=== PATIENT | male | born 1950 | race Caucasian/White ===

== ENCOUNTER 2018-02-22 11:51 | Emergency (ER) | payer MEDICARE ==
[~2018-02-22] VITALS: Ht 172.7 cm; Wt 71.4 kg
[2018-02-22] MEDS ORDERED: PREDNISONE50 MG PO (12:16)
[2018-02-22] MEDS ORDERED: REPATHA140 MG/ML IM (12:32)
[2018-02-22] MEDS ORDERED: NEURONTIN600 MG PO (12:33)
[2018-02-22] MEDS ORDERED: METOPRL/HCTZ1 TA1 PO (12:34)
[2018-02-22] MEDS ORDERED: VENLAFAXINE HC150 M1 PO (12:34)
[2018-02-22] MEDS ORDERED: HYDROCO/APAP1 T11 PO (12:34)
[2018-02-22] MEDS ORDERED: TRAZODONE100 MG PO (12:34)
[2018-02-22] MEDS ORDERED: LAMICTAL100 M1 PO (12:35)
[2018-02-22 12:41] VITALS: BP 98/68
== END 2018-02-22 12:30 | disposition home or self-care (01) ==
LOC: ED 11:51
DX: L27.0 Generalized skin eruption due to drugs and medicaments taken internally (principal); T50.995A Adverse effect of other drugs, medicaments and biological substances, initial encounter; R50.9 Fever, unspecified; Y92.009 Unspecified place in unspecified non-institutional (private) residence as the place of occurrence of the external cause

== ENCOUNTER 2019-01-22 12:42 | Emergency (ER) | payer MEDICARE ==
[~2019-01-22] VITALS: Ht 172.7 cm; Wt 90.0 kg
[~2019-01-22 12:42] MED LIST: HYDROCO/APAP1 T11 PO; LAMICTAL100 M1 PO; METOPRL/HCTZ1 TA1 PO; NEURONTIN600 MG PO; PREDNISONE50 MG PO; REPATHA140 MG/ML IM; TRAZODONE100 MG PO; VENLAFAXINE HC150 M1 PO
[2019-01-22 13:24] LABS: HEMATOCRIT 39.9 % (39.0-50.0); HEMOGLOBIN 13.8 g/dl (14.0-18.0); IMMATURE GRANULOCYTES 0.3 % (0.0-5.0); MEAN CELL VOLUME 98.5 fL CALC (80.0-100.0); MEAN CORPUSCULAR HGB 34.1 pG CALC (26.0-32.0); MEAN CORPUSCULAR HGB CONC 34.6 g/L CALC (32.0-36.0); NEUT# 5.18 thou/uL (1.82-7.42); RED BLOOD COUNT 4.05 mill/uL (4.70-6.10); RED CELL DISTRI WIDTH 12.5 % (11.5-15.5)
[2019-01-22 13:46] LABS: INTERNATIONAL NORMALIZED RATIO 0.9 RATIO (0.7-1.3); PROTHROMBIN TIME 9.7 SECONDS (9.0-12.5)
[2019-01-22 13:58] LABS: ALBUMIN 4.2 g/dL (3.2-5.0); ALKALINE PHOSPHATASE 72 u/l (38-126); ANION GAP 15 (6-22 (CALC)); BILIRUBIN, TOTAL 0.9 mg/dL (0.0-1.4); BUN 10 mg/dL (8-23); BUN/CREATININE RATIO 12 (12-20 (CALC)); CARBON DIOXIDE 26 mmol/l (22-30); CHLORIDE 99 mmol/l (95-108); CREATININE 0.9 mg/dL (0.7-1.3); GFR > 60 ML/MIN (>=60 (CALC)); GFR FOR AFR.AMER. > 60 ML/MIN (>=60 (CALC)); SGOT/AST 33 u/l (19-48); SODIUM 136 mmol/l (137-146)
[2019-01-22] MEDS ORDERED: TORADOL PO (15:42)
[2019-01-22] MEDS ORDERED: FLEXERIL PO (15:42)
[2019-01-22 15:58] VITALS: BP 146/80
[2019-01-22] MEDS ORDERED: HYDROCHLOROT25 MG PO (16:02)
[2019-01-22] MEDS ORDERED: LOPRESSOR 550 MG/TAB PO (16:02)
== END 2019-01-22 16:20 | disposition home or self-care (01) ==
LOC: ED 12:42
PROVIDERS: Emergency Medicine
DX: I10 Essential (primary) hypertension (principal); M47.812 Spondylosis without myelopathy or radiculopathy, cervical region; R51 Headache; I25.2 Old myocardial infarction; H53.8 Other visual disturbances; E78.5 Hyperlipidemia, unspecified; Z86.73 Personal history of transient ischemic attack (TIA), and cerebral infarction without residual deficits

== ENCOUNTER 2020-01-12 18:34 | Observation (INO) | payer MEDICARE ==
[~2020-01-12] VITALS: Ht 172.7 cm; Wt 70.3 kg
[~2020-01-12 18:34] MED LIST changes: +FLEXERIL PO; +HYDROCHLOROT25 MG PO; +LOPRESSOR 550 MG/TAB PO; +TORADOL PO
[2020-01-12 19:02] LABS: HEMATOCRIT 37.5 % (39.0-50.0); HEMOGLOBIN 13.1 g/dl (14.0-18.0); IMMATURE GRANULOCYTES 0.2 % (0.0-5.0); MEAN CELL VOLUME 95.7 fL CALC (80.0-100.0); MEAN CORPUSCULAR HGB 33.4 pG CALC (26.0-32.0); MEAN CORPUSCULAR HGB CONC 34.9 g/L CALC (32.0-36.0); NEUT# 4.97 thou/uL (1.82-7.42); RED BLOOD COUNT 3.92 mill/uL (4.70-6.10); RED CELL DISTRI WIDTH 12.3 % (11.5-15.5)
[2020-01-12 19:22] LABS: COCAINE NEGATIVE (NEGATIVE); METHADONE NEGATIVE (NEGATIVE); TETRAHYDROCANNABIONOL NEGATIVE (NEGATIVE)
[2020-01-12 19:28] LABS: BARBITURATES NEGATIVE (NEGATIVE); TRICYLIC ANTIDEPRESSANTS NEGATIVE (NEGATIVE)
[2020-01-12 19:29] LABS: OXCYCODONE POSITIVE (NEGATIVE)
[2020-01-12 19:33] LABS: ANION GAP 14 (6-22 (CALC)); BUN 11 mg/dL (8-23); BUN/CREATININE RATIO 13 (12-20 (CALC)); CARBON DIOXIDE 30 mmol/l (22-30); CHLORIDE 92 mmol/l (95-108); CREATININE 0.8 mg/dL (0.7-1.3); ETHYL ALCOHOL 131 mg/dl (0-30); GFR > 60 ML/MIN (>=60 (CALC)); GFR FOR AFR.AMER. > 60 ML/MIN (>=60 (CALC)); SODIUM 133 mmol/l (137-146)
[2020-01-12 19:34] LABS: POTASSIUM 3.1 mmol/l (3.5-5.1)
[2020-01-12] MEDS ORDERED: MONTELUKAST SOD10 MG PO (20:55)
[2020-01-12] MEDS ORDERED: SIMVASTATIN5 MG PO (20:55)
[2020-01-12] MEDS ORDERED: ISOSORBID1 XX (20:57)
[2020-01-12 21:55] VITALS: BP 99/66
[2020-01-12 23:37] VITALS: BP 119/60
[2020-01-13 03:38] VITALS: BP 131/63
[2020-01-13 04:28] LABS: HEMATOCRIT 39.3 % (39.0-50.0); HEMOGLOBIN 13.6 g/dl (14.0-18.0); IMMATURE GRANULOCYTES 0.2 % (0.0-5.0); MEAN CELL VOLUME 94.7 fL CALC (80.0-100.0); MEAN CORPUSCULAR HGB 32.8 pG CALC (26.0-32.0); MEAN CORPUSCULAR HGB CONC 34.6 g/L CALC (32.0-36.0); NEUT# 4.12 thou/uL (1.82-7.42); RED BLOOD COUNT 4.15 mill/uL (4.70-6.10); RED CELL DISTRI WIDTH 12.4 % (11.5-15.5)
[2020-01-13 04:52] LABS: ANION GAP 10 (6-22 (CALC)); BUN 13 mg/dL (8-23); BUN/CREATININE RATIO 16 (12-20 (CALC)); CARBON DIOXIDE 33 mmol/l (22-30); CHLORIDE 95 mmol/l (95-108); CREATININE 0.8 mg/dL (0.7-1.3); GFR > 60 ML/MIN (>=60 (CALC)); GFR FOR AFR.AMER. > 60 ML/MIN (>=60 (CALC)); POTASSIUM 3.4 mmol/l (3.5-5.1); SODIUM 135 mmol/l (137-146)
[2020-01-13 08:00] VITALS: BP 141/71
[2020-01-13 11:50] VITALS: BP 119/60
[2020-01-13 16:00] VITALS: BP 135/71
[2020-01-13] MEDS ORDERED: MONTELUKAST SOD10 MG PO (16:42)
[2020-01-13] MEDS ORDERED: ISOSORBIDE MONO30 MG PO (16:42)
[2020-01-13] MEDS ORDERED: CRESTOR40 MG PO (16:43)
[2020-01-13 18:34] VITALS: BP 107/67
[2020-01-13 23:15] VITALS: BP 102/55
[2020-01-14 04:51] VITALS: BP 97/55
[2020-01-14 05:32] LABS: HEMATOCRIT 40.6 % (39.0-50.0); HEMOGLOBIN 13.8 g/dl (14.0-18.0); MEAN CELL VOLUME 97.4 fL CALC (80.0-100.0); MEAN CORPUSCULAR HGB 33.1 pG CALC (26.0-32.0); RED BLOOD COUNT 4.17 mill/uL (4.70-6.10); RED CELL DISTRI WIDTH 12.6 % (11.5-15.5)
[2020-01-14 05:43] LABS: INTERNATIONAL NORMALIZED RATIO 0.9 RATIO (0.7-1.3); PROTHROMBIN TIME 9.7 SECONDS (9.0-12.5)
[2020-01-14 05:49] LABS: ANION GAP 13 (6-22 (CALC)); BUN 23 mg/dL (8-23); BUN/CREATININE RATIO 19 (12-20 (CALC)); CALCULATED LDLCHOLESTEROL 77 mg/dL (62-129 (CALC)); CARBON DIOXIDE 27 mmol/l (22-30); CHLORIDE 101 mmol/l (95-108); CHOLESTEROL HDL RATIO 2.6 (<4.4 (CALC)); CREATININE 1.2 mg/dL (0.7-1.3); GFR 60 ML/MIN (>=60 (CALC)); GFR FOR AFR.AMER. > 60 ML/MIN (>=60 (CALC)); HDL CHOLESTEROL 74 mg/dL (>=40); MAGNESIUM 2.2 mg/dL (1.6-2.3); POTASSIUM 3.9 mmol/l (3.5-5.1); SODIUM 137 mmol/l (137-146); TOTAL CHOLESTEROL 189 mg/dl (0-199); TOTAL TRIGLYCERIDES 191 mg/dl (30-149); VLDL CHOLESTROL 38 mg/dl (4-45 (CALC))
[2020-01-14 08:00] VITALS: BP 123/71
[2020-01-14 11:18] VITALS: BP 109/54
[2020-01-14] MEDS ORDERED: ADLT ASA LOW81 MG PO (11:23)
[2020-01-14] MEDS ORDERED: PLAVIX75 MG PO ×2 (11:23→16:39)
[2020-01-14 15:19] VITALS: BP 102/62
[2020-01-14] MEDS ORDERED: CHILD'S ASA81 MG PO (16:39)
[2020-01-14 18:32] VITALS: BP 139/66
== END 2020-01-14 19:30 | disposition home or self-care (01) ==
LOC: ED 18:34 → ED-I 20:34 → ED 20:45 → MS2 20:46
PROVIDERS: Family Medicine; Nurse Practitioner Family; ADMIT Internal Medicine; ATTEND Internal Medicine
DX: I65.21 Occlusion and stenosis of right carotid artery (principal); I10 Essential (primary) hypertension; I25.10 Atherosclerotic heart disease of native coronary artery without angina pectoris; E87.6 Hypokalemia; F32.9 Major depressive disorder, single episode, unspecified; E78.5 Hyperlipidemia, unspecified; G47.30 Sleep apnea, unspecified; M79.10 Myalgia, unspecified site; F40.240 Claustrophobia; I25.2 Old myocardial infarction; Z86.73 Personal history of transient ischemic attack (TIA), and cerebral infarction without residual deficits; Z95.5 Presence of coronary angioplasty implant and graft; Z87.891 Personal history of nicotine dependence
CPT/HCPCS: A9579; G0378; J2060

== ENCOUNTER 2020-04-03 14:33 | Observation (INO) | payer MEDICARE ==
[~2020-04-03] VITALS: Ht 172.7 cm; Wt 72.0 kg
[~2020-04-03 14:33] MED LIST changes: +ADLT ASA LOW81 MG PO; +CHILD'S ASA81 MG PO; +CRESTOR40 MG PO; +ISOSORBID1 XX; +ISOSORBIDE MONO30 MG PO; +MONTELUKAST SOD10 MG PO; +PLAVIX75 MG PO; +SIMVASTATIN5 MG PO
--- NOTE | 2020-04-03 14:33 | NUR ---
PATIENT TO ROOM VIA EMS AND PHYSICIAN NOTIFED OF PATIENT STATUS
[2020-04-03 14:59] LABS: HEMOGLOBIN 13.3 g/dl (14.0-18.0); IMMATURE GRANULOCYTES 0.2 % (0.0-5.0); MEAN CELL VOLUME 95.2 fL CALC (80.0-100.0); MEAN CORPUSCULAR HGB 33.3 pG CALC (26.0-32.0); NEUT# 4.79 thou/uL (1.82-7.42); RED BLOOD COUNT 3.99 mill/uL (4.70-6.10); RED CELL DISTRI WIDTH 11.9 % (11.5-15.5)
[2020-04-03 15:22] LABS: ALBUMIN 4.1 g/dL (3.2-5.0); ALKALINE PHOSPHATASE 60 u/l (38-126); AMYLASE 143 u/l (30-110); ANION GAP 11 (6-22 (CALC)); BILIRUBIN, TOTAL 0.4 mg/dL (0.0-1.4); BUN 20 mg/dL (8-23); BUN/CREATININE RATIO 21 (12-20 (CALC)); CARBON DIOXIDE 29 mmol/l (22-30); CHLORIDE 98 mmol/l (95-108); GFR > 60 ML/MIN (>=60 (CALC)); GFR FOR AFR.AMER. > 60 ML/MIN (>=60 (CALC)); LIPASE 194 u/l (23-300); MAGNESIUM 1.9 mg/dL (1.6-2.3); POTASSIUM 3.6 mmol/l (3.5-5.1); SGOT/AST 50 u/l (19-48); SODIUM 134 mmol/l (137-146); TOTAL PROTEIN 6.9 g/dL (6.3-8.2)
--- NOTE | 2020-04-03 15:30 | NUR ---
PT UPDATED ON KNOWN RESULTS. PT STATES THE NTG PASTE IS HELPING THE CHEST DISCOMFORT.
[2020-04-03 15:32] LABS: ACT PARTIAL THROMBO TIME 23.1 SECONDS (20.0-32.5); INTERNATIONAL NORMALIZED RATIO 0.9 RATIO (0.7-1.3); PROTHROMBIN TIME 9.9 SECONDS (9.0-12.5)
[2020-04-03] MEDS ORDERED: HYDROCHLOROT12.5 MG PO (16:03)
[2020-04-03] MEDS ORDERED: ZETIA10 MG PO (16:06)
--- NOTE | 2020-04-03 16:09 | NUR ---
PT AWARE OF PENDING ADMISSION, NO CHEST PAIN REPORTED.
--- NOTE | 2020-04-03 18:00 | NUR ---
PT TAKEN TO ROOM 268, REPORT WAS TO SANDRINE JACK. PT REMAINS FREE OF CHEST PAIN. MEAL AWAITS PT ON FLOOR.
[2020-04-03 18:01] VITALS: BP 117/69
--- NOTE | 2020-04-03 18:05 | NUR ---
REPORT RECEIVED FROM HAYLIE IN ED, PT ARRIVED ON UNOT VIA W/C @ 1754 AND TRANSFERRED TO BED. ALERT AND ORIENTED X 4, DENIES PAIN AT THIS TIME, TELE MONITOR IN PLACE, IV ACCESS IN PLACE TO RAC. ORIENTED TO ROOM AND CALL WOODARD, MEAL SERVED, CALL WOODARD IN REACH, WILL CONTINUE TO MONITOR.
[2020-04-03 19:05] VITALS: BP 138/71
--- NOTE | 2020-04-03 19:30 | NUR ---
PATIENT RESTING IN BED POSITIONED ON LEFT SIDE. EASY TO AROUSE. PATIENT IS ALERT AND ORIENTEDX3. PATIENT WITH NO COMPLAINTS OR CONCERNS AT THIS TIME. DENIES CHEST PAIN OR SOB AT THIS TIME. TELE MONITOR IN PLACE. SALINE LOCK TO RIGHT AC-APPEARS HEALTHY AT THIS TIME. SAFETY PRECAUTIONS REINFORCED. CALL LIGHT IN REACH. WILL CONT TO MONITOR.
--- NOTE | 2020-04-03 21:30 | NUR ---
PATIENT MOVED FROM 268 TO 261-ROOM WAS TOO NOISEY. PATIENT STEADY ON HIS FEET. MEDICATED FOR SLEEP WITH TRAZADONE AND SONATA. REFUSED EFFEXOR AT THIS TIME-STATES THAT HE TAKE IT IN THE MORNING AND ALREADY TOO IT TODAY. SAFETY PRECAUTIONS REINFORCED. CALL LIGHT IN REACH. WILL CONT TO MONITOR.
[2020-04-04] VITALS: BP 105/54
[2020-04-04 02:00] VITALS: BP 96/57
--- NOTE | 2020-04-04 02:40 | NUR ---
RECEIVED CALL FROM ER THAT PATIENT HR-40'S. PATIENT IS SLEEPING, SNORING AND EASY TO AROUSE. DENIES ANY DISCOMFORT, PALPATATIONS OR SOB. SKIN IS WARM AND DRY. CALL LIGHT IN REACH. WILL CONT TO MONITOR.
[2020-04-04 04:09] VITALS: BP 92/56
--- NOTE | 2020-04-04 04:57 | NUR ---
PATIENT APPEARS SLEEPING AT THIS TIME WITH EYES CLOSED POSITION ON SIDE. RESPS ARE EVEN AND UNLABORED. TELE MONITOR IN PLACE. CALL LIGHT IN REACH. WILL CONT TO MONITOR.
[2020-04-04 06:28] LABS: CHOLESTEROL HDL RATIO 2.3 (<4.4 (CALC))
[2020-04-04 08:00] VITALS: BP 122/71
--- NOTE | 2020-04-04 08:00 | NUR ---
ASSESSMENT IS COMPLETED: IV SITE IS FREE FROM REDNESS OR EDEMA. HR IS REG, PULSES ARE STRONG X4, ABD IS SOFT WITH ACTIVE BS,. BREATH SOUNDS ARE CLEAR,BILATERALLY. NO C/O CP. TELE MONITOR IN PLACE.
[2020-04-04 11:00] VITALS: BP 91/53
--- NOTE | 2020-04-04 12:00 | NUR ---
PT IV SITE DISCONTINUED CATHETER INTACT FOR DISCHARGE ALL INSTRUCTIONS GIVEN WILL CALLF OR RIDE AFTER 12 DUE TO RIDE IS RESTING. CONITNUE TO OBSERVE AND MONITOR.
--- NOTE | 2020-04-04 13:05 | NUR ---
Discharge instructions given. Patient verbalizes understanding of same. Discharged in stable condition via Wheelchair to Home with family. All belongings sent with pt.
== END 2020-04-04 13:08 | disposition home or self-care (01) ==
LOC: ED 14:33 → ED-I 15:08 → ED 16:04 → ED-I 16:05 → MS2 16:23
PROVIDERS: ADMIT Internal Medicine; ATTEND Internal Medicine
DX: R07.9 Chest pain, unspecified (principal); I10 Essential (primary) hypertension; I25.10 Atherosclerotic heart disease of native coronary artery without angina pectoris; I65.29 Occlusion and stenosis of unspecified carotid artery; E78.5 Hyperlipidemia, unspecified; I25.2 Old myocardial infarction; Z95.5 Presence of coronary angioplasty implant and graft; Z86.73 Personal history of transient ischemic attack (TIA), and cerebral infarction without residual deficits; Z87.891 Personal history of nicotine dependence; Z79.02 Long term (current) use of antithrombotics/antiplatelets; Z79.82 Long term (current) use of aspirin
CPT/HCPCS: G0378

== ENCOUNTER 2021-03-09 14:09 | Emergency (ER) | payer MEDICARE ==
[~2021-03-09 14:09] MED LIST changes: +HYDROCHLOROT12.5 MG PO; +ZETIA10 MG PO
[2021-03-09 14:52] LABS: HEMATOCRIT 43.3 % (39.0-50.0); HEMOGLOBIN 14.6 g/dl (14.0-18.0); IMMATURE GRANULOCYTES 0.5 % (0.0-5.0); MEAN CELL VOLUME 98.9 fL CALC (80.0-100.0); MEAN CORPUSCULAR HGB 33.3 pG CALC (26.0-32.0); MEAN CORPUSCULAR HGB CONC 33.7 g/dL CAL (32.0-36.0); NEUT# 15.6 thou/uL (1.82-7.42); RED BLOOD COUNT 4.38 mill/uL (4.70-6.10); RED CELL DISTRI WIDTH 12.3 % (11.5-15.5)
[2021-03-09 14:58] LABS: ALBUMIN 4.7 g/dL (3.2-5.0); ALKALINE PHOSPHATASE 69 u/l (38-126); ANION GAP 14 (6-22 (CALC)); BUN 14 mg/dL (8-23); BUN/CREATININE RATIO 13 (12-20 (CALC)); CARBON DIOXIDE 28 mmol/l (22-30); CHLORIDE 96 mmol/l (95-108); CREATININE 1.1 mg/dL (0.7-1.3); GFR > 60 ML/MIN (>=60 (CALC)); GFR FOR AFR.AMER. > 60 ML/MIN (>=60 (CALC)); POTASSIUM 3.6 mmol/l (3.5-5.1); SGOT/AST 50 u/l (19-48); SODIUM 134 mmol/l (137-146)
[2021-03-09 15:00] LABS: BILIRUBIN, TOTAL 0.9 mg/dL (0.0-1.4); TOTAL PROTEIN 8.3 g/dL (6.3-8.2)
[2021-03-09 16:40] LABS: URINE BILIRUBIN - DIPSTICK NEGATIVE (NEGATIVE); URINE BLOOD DIPSTICK SMALL (NEGATIVE); URINE COLOR YELLOW; URINE GLUCOSE - DIPSTICK NEGATIVE (NEGATIVE); URINE KETONE NEGATIVE (NEGATIVE); URINE LEUK ESTERASE NEGATIVE (NEGATIVE); URINE PROTEIN - DIPSTICK NEGATIVE (NEG-TRACE); URINE UROBILINOGEN - DIPSTICK 0.2 E.U./dL (0.2)
[2021-03-09 16:42] LABS: URINE NITRITE - DIPSTICK NEGATIVE (Negative)
[2021-03-09 16:45] LABS: URINE RBC 0-2 RBC/hpf (0-5); URINE WBC 0-2 WBC/hpf (0-5)
[2021-03-09] MEDS ORDERED: BACLOFEN5 MG PO (17:06)
[2021-03-09] MEDS ORDERED: PLAVIX75 MG PO (17:06)
[2021-03-09 17:08] VITALS: BP 119/77
== END 2021-03-09 17:29 | disposition home or self-care (01) ==
LOC: ED 14:09
PROVIDERS: Emergency Medicine
DX: R42 Dizziness and giddiness (principal); I10 Essential (primary) hypertension; E78.5 Hyperlipidemia, unspecified; I25.2 Old myocardial infarction; Z86.73 Personal history of transient ischemic attack (TIA), and cerebral infarction without residual deficits; Z79.02 Long term (current) use of antithrombotics/antiplatelets
CPT/HCPCS: Q9967

== ENCOUNTER 2021-10-31 16:58 | Emergency (ER) | payer MEDICARE ==
[~2021-10-31] VITALS: Ht 172.7 cm; Wt 75.0 kg
[~2021-10-31 16:58] MED LIST changes: +BACLOFEN5 MG PO
[2021-10-31 18:35] VITALS: BP 129/73
== END 2021-10-31 18:35 | disposition home or self-care (01) ==
LOC: ED 16:58
PROC: 0HQKXZZ Repair Right Lower Leg Skin, External Approach (ICD-10-PCS; principal; 2021-10-31)
DX: S81.811A Laceration without foreign body, right lower leg, initial encounter (principal); I10 Essential (primary) hypertension; I25.2 Old myocardial infarction; E78.5 Hyperlipidemia, unspecified; X58.XXXA Exposure to other specified factors, initial encounter; Z86.73 Personal history of transient ischemic attack (TIA), and cerebral infarction without residual deficits; Z79.01 Long term (current) use of anticoagulants

== ENCOUNTER 2021-11-11 10:02 | Emergency (ER) | payer MEDICARE ==
[~2021-11-11] VITALS: Ht 172.7 cm; Wt 75.0 kg
[2021-11-11 11:09] VITALS: BP 145/74
== END 2021-11-11 11:11 | disposition home or self-care (01) ==
LOC: ED 10:02
DX: S91.011D Laceration without foreign body, right ankle, subsequent encounter (principal); X58.XXXD Exposure to other specified factors, subsequent encounter; I10 Essential (primary) hypertension; E78.5 Hyperlipidemia, unspecified; I25.2 Old myocardial infarction; Z86.73 Personal history of transient ischemic attack (TIA), and cerebral infarction without residual deficits

== ENCOUNTER 2022-05-02 14:37 | Observation (INO) | payer MEDICARE ==
[2022-05-02] VITALS (24 sets, daily range): BP systolic 107–138; BP diastolic 57–91
[~2022-05-02] VITALS: Ht 172.7 cm; Wt 70.0 kg
[2022-05-02 15:15] LABS: HEMATOCRIT 41.9 % (39.0-50.0); HEMOGLOBIN 14.3 g/dl (14.0-18.0); IMMATURE GRANULOCYTES 0.1 % (0.0-5.0); MEAN CELL VOLUME 101.2 fL CALC (80.0-100.0); MEAN CORPUSCULAR HGB 34.5 pG CALC (26.0-32.0); MEAN CORPUSCULAR HGB CONC 34.1 g/dL CAL (32.0-36.0); NEUT# 5.85 thou/uL (1.82-7.42); RED BLOOD COUNT 4.14 mill/uL (4.70-6.10)
[2022-05-02] MEDS ORDERED: LAMOTRIGINE100 MG PO (15:26)
[2022-05-02 15:29] LABS: ALBUMIN 4.3 g/dL (3.2-5.0); ALKALINE PHOSPHATASE 72 u/l (38-126); ANION GAP 16 (6-22 (CALC)); BUN 15 mg/dL (8-23); BUN/CREATININE RATIO 14 (12-20 (CALC)); CARBON DIOXIDE 24 mmol/l (22-30); CHLORIDE 98 mmol/l (95-108); GFR FOR AFR.AMER. > 60 ML/MIN (>=60 (CALC)); GFR OTHER RACES > 60 ML/MIN (>=60 (CALC)); POTASSIUM 3.5 mmol/l (3.5-5.1); SGOT/AST 40 u/l (19-48); SODIUM 134 mmol/l (137-146); TOTAL PROTEIN 7.7 g/dL (6.3-8.2)
[2022-05-02] MEDS ORDERED: BAYER CHEWABLE81 MG PO (15:29)
[2022-05-02] MEDS ORDERED: OMEPRAZOLE10 MG PO (15:29)
[2022-05-02 15:30] LABS: BILIRUBIN, TOTAL 0.5 mg/dL (0.0-1.4)
[2022-05-02] MEDS ORDERED: TRAZODONE50 MG PO (15:30)
[2022-05-02] MEDS ORDERED: ISOSORB MONO30 MG PO (16:33)
[2022-05-02] MEDS ORDERED: HYDROCODONE BIT1 TA9 PO (16:33)
[2022-05-02] MEDS ORDERED: BACLOFEN10 MG PO (16:33)
[2022-05-03 00:18] VITALS: BP 91/49
[2022-05-03 05:09] VITALS: BP 110/71
[2022-05-03 05:24] LABS: HEMATOCRIT 40.3 % (39.0-50.0); HEMOGLOBIN 13.5 g/dl (14.0-18.0); MEAN CELL VOLUME 102.8 fL CALC (80.0-100.0); MEAN CORPUSCULAR HGB 34.4 pG CALC (26.0-32.0); MEAN CORPUSCULAR HGB CONC 33.5 g/dL CAL (32.0-36.0); RED BLOOD COUNT 3.92 mill/uL (4.70-6.10); RED CELL DISTRI WIDTH 12.2 % (11.5-15.5)
[2022-05-03 05:51] LABS: BUN 19 mg/dL (8-23); BUN/CREATININE RATIO 16 (12-20 (CALC)); CALCULATED LDLCHOLESTEROL 87 mg/dL (62-129 (CALC)); CHLORIDE 96 mmol/l (95-108); CHOLESTEROL HDL RATIO 3.8 (<4.4 (CALC)); CREATININE 1.2 mg/dL (0.7-1.3); GFR FOR AFR.AMER. > 60 ML/MIN (>=60 (CALC)); GFR OTHER RACES 60 ML/MIN (>=60 (CALC)); HDL CHOLESTEROL 46 mg/dL (>=40); MAGNESIUM 1.8 mg/dL (1.6-2.3); POTASSIUM 3.8 mmol/l (3.5-5.1); SODIUM 136 mmol/l (137-146); TOTAL CHOLESTEROL 174 mg/dl (0-199); TOTAL TRIGLYCERIDES 207 mg/dl (30-149); VLDL CHOLESTROL 41 mg/dl (4-45 (CALC))
[2022-05-03 06:02] LABS: ANION GAP 13 (6-22 (CALC)); CARBON DIOXIDE 31 mmol/l (22-30)
[2022-05-03 07:45] VITALS: BP 109/64
[2022-05-03 10:35] VITALS: BP 102/64
[2022-05-03] MEDS ORDERED: ASPERCREME LIDOCA4 % SD (12:23)
[2022-05-03] MEDS ORDERED: TESSALON PERLE100 MG PO (15:05)
== END 2022-05-03 15:07 | disposition home or self-care (01) ==
LOC: ED 14:37 → ED-I 15:30 → ED 19:00 → MS2 19:01
PROVIDERS: Family Medicine; ADMIT Hospitalist; ATTEND Hospitalist
DX: R07.89 Other chest pain (principal); I10 Essential (primary) hypertension; I25.10 Atherosclerotic heart disease of native coronary artery without angina pectoris; E78.5 Hyperlipidemia, unspecified; F32.A Depression, unspecified; Z95.5 Presence of coronary angioplasty implant and graft; Z86.73 Personal history of transient ischemic attack (TIA), and cerebral infarction without residual deficits; Z87.891 Personal history of nicotine dependence; Z20.822 Contact with and (suspected) exposure to COVID-19

== ENCOUNTER 2024-11-22 10:13 | Observation (INO) | payer MEDICARE ==
[~2024-11-22] VITALS: Ht 172.7 cm; Wt 74.2 kg
[2024-11-22] VITALS (16 sets, daily range): BP systolic 94–125; BP diastolic 47–72
[~2024-11-22 10:13] MED LIST changes: +ABILIFY5 MG PO; +ARIPIPRAZOLE20 MG PO; +ASPERCREME LIDOCA4 % SD; +BACLOFEN10 MG PO; +BACLOFEN20 MG PO; +BAYER CHEWABLE81 MG PO; +COSOPT PF OD; +EFFEXOR XR150 MG PO; +ESOMEPRAZOLE MA20 MG PO; +FOLIC ACID1 M1 PO; +GABAPENTIN300 M2 PO; +HYDROCODONE BIT1 TA9 PO; +HYDROXYZ HCL25 MG PO; +ISOSORB MONO20 MG PO; +ISOSORB MONO30 MG PO; +LAMICTAL150 M1 PO; +LAMICTAL200 M1 PO; +LAMOTRIGINE100 MG PO; +LOPRESSOR25 M1 PO; +MAXITROL0.1 % OD; +Magnesium PO; +NEXIUM 24HR20 MG PO; +NITROGLYCERIN0.4 MG SL; +OMEPRAZOLE10 MG PO; +REMERON30 MG PO; +SEROQUEL50 MG PO; +SINGULAIR10 MG PO; +TESSALON PERLE100 MG PO; +TRAZODONE50 MG PO; +VENLAFAXINE225 MG PO; +VITAMIN B-1100 M1 PO; +ZYRTEC ALLGY10 M1 PO; +ZYRTEC10 MG PO
--- NOTE | 2024-11-22 10:42 | NUR ---
PT AMBULATED TO ROOM 4 IN STABLE CONDITION.
--- NOTE | 2024-11-22 11:00 | NUR ---
URINAL PROVIDED. AWAITING URINE SAMPLE.
[2024-11-22 11:02] LABS: BASO% 0.4 % (0-3); HEMOGLOBIN 14.1 g/dl (14.0-18.0); IMMATURE GRANULOCYTES 0.1 % (0.0-5.0); LYMPH% 13.9 % (15-41); MEAN CELL VOLUME 99.8 fL CALC (80.0-100.0); MEAN CORPUSCULAR HGB 33.5 pG CALC (26.0-32.0); MEAN CORPUSCULAR HGB CONC 33.6 g/dL CAL (32.0-36.0); MONO% 5.5 % (2-13); NEUT# 6.13 thou/uL (1.82-7.42); NEUT% 78.1 % (42-76); RED BLOOD COUNT 4.21 mill/uL (4.70-6.10); RED CELL DISTRI WIDTH 12.1 % (11.5-15.5)
[2024-11-22 11:10] LABS: ALBUMIN 4.3 g/dL (3.2-5.0); ALKALINE PHOSPHATASE 52 u/l (38-126); BILIRUBIN, TOTAL 0.6 mg/dL (0.2-1.3); BUN 19 mg/dL (8-23); BUN/CREATININE RATIO 15 (12-20 (CALC)); CHLORIDE 90 mmol/l (95-108); CREATININE 1.3 mg/dL (0.7-1.3); ESTIMATED GFR 58 ML/MIN (>=90 (CALC)); POTASSIUM 3.2 mmol/l (3.5-5.1); SGOT/AST 46 u/l (19-48); SODIUM 133 mmol/l (137-146); TOTAL PROTEIN 7.3 g/dL (6.3-8.2)
[2024-11-22] MEDS ORDERED: SODIUM CHLORIDE 0.9% 1,000 ML IV ONE (11:10)
[2024-11-22 11:13] LABS: ANION GAP 12 (6-22 (CALC)); CARBON DIOXIDE 34 mmol/l (22-30)
[2024-11-22 11:30] LABS: URINE BLOOD DIPSTICK Moderate (NEGATIVE); URINE GLUCOSE - DIPSTICK Negative (NEGATIVE); URINE KETONE Negative (NEGATIVE); URINE LEUK ESTERASE Negative (NEGATIVE); URINE NITRITE - DIPSTICK Negative (Negative); URINE PROTEIN - DIPSTICK 100 mg/dL (NEG-TRACE); URINE SPECIFIC GRAVITY >=1.030; URINE UROBILINOGEN - DIPSTICK 0.2 E.U./dL (0.2)
[2024-11-22 11:48] LABS: URINE COLOR Dark yellow
[2024-11-22 11:49] LABS: URINE EPITHELIAL CELLS FEW EPI/hpf (0-FEW); URINE MUCUS MODERATE hpf (NONE-FEW)
--- NOTE | 2024-11-22 12:07 | NUR ---
IV FLUIDS STILL RUNNING. RESPIRATORY IN ROOM AT THIS TIME.
[2024-11-22] MEDS ORDERED: AZITHROMYCIN 500 MG in SODIUM CHLORIDE 0.9% 500 ML IV ONE (12:15)
[2024-11-22] MEDS ORDERED: OSELTAMIVIR PHOSPHATE 75 MG/TAB CAP PO ONE (12:15)
[2024-11-22] MEDS ORDERED: cefTRIAXone SODIUM 2 GM in SODIUM CHLORIDE 0.9% 100 ML IV ONE (12:15)
[2024-11-22] MEDS ORDERED: ACETAMINOPHEN 325 MG/TAB PO PRN (12:55)
[2024-11-22] MEDS ORDERED: SODIUM CHLORIDE 0.9% 1,000 ML IV PRN (12:55)
[2024-11-22] MEDS ORDERED: MAGNESIUM HYDROXIDE 30 ML UDC PO PRN (12:55)
[2024-11-22] MEDS ORDERED: ONDANSETRON HCl 4 MG/2 ML SDV IV PRN (13:00)
[2024-11-22] MEDS ORDERED: IPRATROPIUM-Albuterol 0.5MG-2.5MG/3 ML NEB PRN (13:00)
[2024-11-22] MEDS ORDERED: hydrOXYzine HCL 25 MG/TAB PO PRN (13:05)
--- NOTE | 2024-11-22 13:34 | NUR ---
SECOND ABX RUNNING AT THIS TIME. NO ROOM AVAILABLE AT THIS TIME FOR ADMISSION.
--- NOTE | 2024-11-22 14:06 | NUR ---
REPORT GIVEN TO HAROLDO JACK
--- NOTE | 2024-11-22 14:20 | NUR ---
PT ARRIVED TO UNIT VIA WHEELCHAIR TRANSPORT. X1 ASSIST TO BED FROM WHEELCHAIR. RESPIRATIONS ARE SHALLOW AND LABORED WITH ACTIVITY, LUNGS ARE DIM THROUGHOUT, NON PRODUCTIVE COUGH, BOWEL SOUNDS ACTIVE, PEDAL PULSES PALPABLE TO TOUCH, PT AGREE TO WEARING IGOR HOSE. PT DENIES PAIN AT THIS TIME.
--- NOTE | 2024-11-22 18:33 | NUR ---
TYLENOL GIVE FOR A TEMP OF 101.6. ALSO REMOVED 3 OF THE 5 BLANKETS FROM PT.
[2024-11-22] MEDS ORDERED: HYDROcodone 5 MG/Acetaminophen 325 MG/COMBO PO PRN (19:00)
--- NOTE | 2024-11-22 20:00 | NUR ---
RECEIVED REPORT FROM NURSE HAROLDO, PATIENT REMAINS ON ISOLATION FOR FLU, PATIENT ALERT ORIENTED, NOT COUGHING NON PRODUCTIVE, BREATHING UNLABORED, ONGOING IV RAC NS @ 100CC/HR INFUSING WELL, HOOKED ON TELEMTRY, PATIENT ON ROOM AIR, TEMP RECHECKED, AFEBRILE, RECORDED, CALL LIGHT WITHIN REACHED.
[2024-11-22] MEDS ORDERED: VENLAFAXINE HYDROCHLORIDE 75 MG/CAP PO SCH (21:00)
[2024-11-22] MEDS ORDERED: MONTELUKAST SODIUM 10 MG/TAB PO SCH (21:00)
[2024-11-22] MEDS ORDERED: lamoTRIgine 100 MG/TAB PO SCH (21:00)
[2024-11-22] MEDS ORDERED: OSELTAMIVIR PHOSPHATE 30 MG/CAP PO SCH (21:00)
[2024-11-22] MEDS ORDERED: GABAPENTIN 300 MG/CAP PO SCH (21:00)
[2024-11-22] MEDS ORDERED: traZODone HCL 50 MG/TAB PO SCH (21:00)
[2024-11-22] MEDS ORDERED: BACLOFEN 10 MG/TAB PO SCH (21:00)
[2024-11-22] MEDS ORDERED: ENOXAPARIN SODIUM 40 MG/0.4 ML SYR SC SCH (21:00)
--- NOTE | 2024-11-22 23:49 | NUR ---
PATIENT RESTING IN BED, NO DISCOMFORTS NOTED, REMAINS ON ISOLATION, BREATHING EVEN UNLABORED, TELEMETRY PLACEMENT CHECKED, CALL LIGHT WITHIN REACHED.
[2024-11-23 00:02] VITALS: BP 108/60
[2024-11-23 04:23] VITALS: BP 110/68
--- NOTE | 2024-11-23 04:37 | NUR ---
PATIENT RESTING IN BED, NO DISCOMFORTS NOTED AT THIS TIME, REMAINS ON ISOLATION, TELEMETRY IN PLACED, CALL LIGHT WITHIN REACHED.
[2024-11-23 05:18] LABS: BILIRUBIN, TOTAL 0.4 mg/dL (0.2-1.3); CREATININE 0.9 mg/dL (0.7-1.3); MAGNESIUM 1.8 mg/dL (1.6-2.3); POTASSIUM 3.1 mmol/l (3.5-5.1)
[2024-11-23 05:20] LABS: BASO% 0.5 % (0-3); EOS% 2.5 % (0-8); IMMATURE GRANULOCYTES 0.2 % (0.0-5.0); MEAN CELL VOLUME 100.3 fL CALC (80.0-100.0); MEAN CORPUSCULAR HGB 34.6 pG CALC (26.0-32.0); MEAN CORPUSCULAR HGB CONC 34.5 g/dL CAL (32.0-36.0); MONO% 10.4 % (2-13); NEUT# 2.36 thou/uL (1.82-7.42); NEUT% 53.4 % (42-76); RED BLOOD COUNT 3.44 mill/uL (4.70-6.10); RED CELL DISTRI WIDTH 12.2 % (11.5-15.5)
[2024-11-23 05:27] LABS: TOTAL PROTEIN 5.4 g/dL (6.3-8.2)
[2024-11-23 06:32] LABS: HEMATOCRIT 34.5 % (39.0-50.0); HEMOGLOBIN 11.9 g/dl (14.0-18.0)
[2024-11-23 07:49] VITALS: BP 111/69
--- NOTE | 2024-11-23 08:09 | NUR ---
PT IS AOX4, RESPIRATIONS ARE EVEN AND UNLABORED ON ROOM AIR RESTING IN THE BED, LUNGS ARE DIM THROUGOUT, BOWEL SOUNDS ARE ACTIVE, PEDAL PULSES ARE PALPABLE TO TOUCH, PT DENIES PAIN AT THIS TIME.
[2024-11-23] MEDS ORDERED: ISOSORBIDE MONONITRATE 30 MG TAB PO SCH (09:00)
[2024-11-23] MEDS ORDERED: ARIPiprazole 10 MG/TAB PO SCH (09:00)
[2024-11-23] MEDS ORDERED: PANTOPRAZOLE SODIUM Sesquihydr 40 MG/TAB PO SCH (09:00)
[2024-11-23] MEDS ORDERED: CLOPIDOGREL BISULFATE 75 MG/TAB TAB PO SCH (09:00)
[2024-11-23] MEDS ORDERED: METOPROLOL TARTRATE 50 MG/TAB PO SCH (09:00)
[2024-11-23] MEDS ORDERED: hydroCHLOROthiazide 25 MG/TAB PO SCH (09:00)
[2024-11-23] MEDS ORDERED: NITROGLYCERIN 0.4 MG/TAB SL PRN (12:15)
--- NOTE | 2024-11-23 12:57 | NUR ---
PT SITTING UP IN BED VISITING WITH FAMILY, RESPIRATIONS ARE EVEN AND UNLABORED ON ROOM AIR, NO COMPLAINTS AT THIS TIME.
[2024-11-23] MEDS ORDERED: AZITHROMYCIN 500 MG in SODIUM CHLORIDE 0.9% 500 ML IV SCH (13:00)
[2024-11-23] MEDS ORDERED: POTASSIUM CHLORIDE 20MEQ 100 ML IV SCH (14:00)
[2024-11-23 15:34] VITALS: BP 141/72
--- NOTE | 2024-11-23 16:26 | NUR ---
TELEPHONE ORDER TAKEN FROM DR MALHOTRA FOR 200MG ROBITUSSIN PO Q4 HRS PRN FOR COUGH.
[2024-11-23] MEDS ORDERED: GUAIFENESIN 200 MG/10 ML UDC PO PRN (16:55)
[2024-11-23 18:34] VITALS: BP 104/53
--- NOTE | 2024-11-23 19:15 | NUR ---
PATIENT ALERT AND ORIENTED. ABLE TO MAKE NEEDS KNOWN. ASSESSMENT COMPLETE. NO DISTRESS NOTED. NO COMPLAINTS VOICED. REMAINS ON DROPLET FOR INFLUENZA. DENIES NEEDING ANYTHING AT THIS TIME. BED REMAINS IN LOW POSITION. CALL WOODARD AND BELONGINGS IN REACH.
[2024-11-23 20:46] VITALS: BP 106/62
[2024-11-23] MEDS ORDERED: ATORVASTATIN CALCIUM 40 MG/TAB PO SCH (21:00)
--- NOTE | 2024-11-24 00:05 | NUR ---
PATIENT REMAINS RESTING IN BED. DENIES NEEDING ANYTHING AT THIS TIME. NO DISTRESS NOTED. NO COMPLAINTS OF PAIN. BED REMAINS IN LOW POSITION. CALL WOODARD IN REACH.
[2024-11-24 00:44] VITALS: BP 114/63
[2024-11-24 04:27] VITALS: BP 111/59
[2024-11-24 04:35] LABS: BASO% 0.5 % (0-3); EOS% 3.2 % (0-8); HEMATOCRIT 35.6 % (39.0-50.0); HEMOGLOBIN 12.5 g/dl (14.0-18.0); IMMATURE GRANULOCYTES 0.2 % (0.0-5.0); MEAN CELL VOLUME 100.3 fL CALC (80.0-100.0); MEAN CORPUSCULAR HGB 35.2 pG CALC (26.0-32.0); MEAN CORPUSCULAR HGB CONC 35.1 g/dL CAL (32.0-36.0); NEUT# 1.48 thou/uL (1.82-7.42); NEUT% 34.1 % (42-76); RED BLOOD COUNT 3.55 mill/uL (4.70-6.10); RED CELL DISTRI WIDTH 12.3 % (11.5-15.5)
[2024-11-24 04:44] LABS: BILIRUBIN, TOTAL 0.3 mg/dL (0.2-1.3); CREATININE 0.9 mg/dL (0.7-1.3); MAGNESIUM 1.9 mg/dL (1.6-2.3); POTASSIUM 3.2 mmol/l (3.5-5.1); TOTAL PROTEIN 5.5 g/dL (6.3-8.2)
--- NOTE | 2024-11-24 04:46 | NUR ---
PATIENT REMAINS RESTING IN BED ON HIS RIGHT SIDE. NO COMPLAINTS VOICED. IVF REPLACED PER ORDERS. DENIES NEEDING ANYTHING AT THIS TIME. BED REMAINS IN LOW POSITION. CALL WOODARD IN REACH.
--- NOTE | 2024-11-24 07:38 | NUR ---
PT IS AOX4, RESPIRATIONS ARE EVEN AND UNLABORED ON ROOM AIR, LUNGS ARE DIM THROUGHOUT, BOWEL SOUNDS ARE ACTIVE, PEDAL PULSES ARE PALPABLE TO TOUCH WITH NO EDEMA NOTED, PT DENIES PAIN AT THIS TIME.
[2024-11-24 08:13] VITALS: BP 143/74
[2024-11-24 11:42] VITALS: BP 122/68
[2024-11-24] MEDS ORDERED: PREDNISONE5 MG PO (12:21)
[2024-11-24] MEDS ORDERED: VANTIN200 M1 PO (12:22)
[2024-11-24] MEDS ORDERED: VIBRAMYCIN100 M2 PO (12:23)
[2024-11-24] MEDS ORDERED: TAM75CAP PO (12:26)
[2024-11-24] MEDS ORDERED: KLOR-CON M2020 MEQ PO (12:26)
--- NOTE | 2024-11-24 13:55 | NUR ---
PT SITTING UP IN BED RECIEVING HIS IV ABX BEFORE DISCHARGE. PT IN NO ACUTE DISTRESS AT THIS TIME.
--- NOTE | 2024-11-24 15:31 | NUR ---
REVIEWED DISCHARGE INSTRUCTIONS WITH PT AND SPOUSE, ANSWERED PT QUESTIONS, REMOVED TELE MONITOR AND PLACED IT IN RETURN BIN AT NURSES STATION.
--- NOTE | 2024-11-24 15:50 | NUR ---
PT LEFT THE UNIT VIA WHEELCHAIR TRANSPORT WITH BELONGINGS INCLUDING WALKER IN HAND.
[2024-11-25] MEDS ORDERED: AZITHROMYCIN 500 MG in DEXTROSE 5% 250 ML IV SCH (13:00)
--- NOTE | 2024-11-26 14:59 | NUR ---
Preliminary blood culture result: 1 out of 4 bottles with gram + rods. Contaminant per lab. Chiqui [employer] notified.
== END 2024-11-24 15:40 | disposition home or self-care (01) ==
LOC: ED 10:13 → ED-I 12:02 → ED 12:02 → MS2 12:44
PROVIDERS: Family Medicine; Internal Medicine; Nurse Practitioner Family; ADMIT Internal Medicine; ATTEND Internal Medicine
DX: J10.00 Influenza due to other identified influenza virus with unspecified type of pneumonia (principal); E87.1 Hypo-osmolality and hyponatremia; E87.6 Hypokalemia; I10 Essential (primary) hypertension; I25.10 Atherosclerotic heart disease of native coronary artery without angina pectoris; E78.5 Hyperlipidemia, unspecified; F41.9 Anxiety disorder, unspecified; F32.A Depression, unspecified; M54.30 Sciatica, unspecified side; I25.2 Old myocardial infarction; Z86.73 Personal history of transient ischemic attack (TIA), and cerebral infarction without residual deficits; Z95.5 Presence of coronary angioplasty implant and graft
CPT/HCPCS: J0456; J0696; J1650; J3480